=== PATIENT | female | born 1975 | race Caucasian/White ===

== ENCOUNTER 2018-08-11 07:15 | Day surgery (SDC) | payer OTHER ==
--- NOTE | 2018-07-08 12:27 | GHP ---
DATE OF ADMISSION: 08/11/2018 Date of planned procedure is 08/11/2018. PLANNED PROCEDURE: Hysteroscopy with morcellation of polyp and fibroid. INDICATIONS: Patient is a 42-year-old 0 who has a longstanding history of premenstrual dysph oric disorder and menorrhagia. The patient had a hysteroscopy and D and C in 2014 for menorrhagia an d endometrial polyps. Her periods were better for 9 months, but then have been progressively worseni ng over the last year and a half. They are very heavy and she has been diagnosed with anemia seconda ry to menorrhagia. Her most recent ultrasound showed a thickened lining on endometrium and a submuco javier fibroid. A sonohysterogram was performed which showed 3 polyps. The patient has been receiving care at [facility], however, her insurance is not taken at the hospital so she would like to proc eed with the surgery here. The patient is single at 42 and knows that she is not likely to have chil dren, however, is not interested in having an ablation or hysterectomy at this time due to not wantin g to close that window. All management options have been reviewed with the patient and the patient h as been properly consented. MEDICAL HISTORY: Menorrhagia, migraines, cystic acne when she had a Mirena IUD, severe premenstrual dysphoric disorder, depression, anxiety, anemia. MEDICATIONS: Trazodone 50 mg a day, Klonopin 0.5 mg, citalopram 40 mg, Wellbutrin 100 mg, estrogen p atch 0.5 mg, progesterone 100 mg, and [place] Thyroid 15 mg. SURGICAL HISTORY: Hysteroscopy with morcellation of endometrial polyp and myomectomy, and a bladder surgery. ALLERGIES: Penicillin. SOCIAL HISTORY: Patient is single. She denies tobacco or drug use. She does drink 1-2 alcoholic be verages a week. FAMILY MEDICAL HISTORY: Noncontributory. 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 Periods every month. They are very heavy. She bleeds 1-2 days. She has to change a super plus tampon and a heavy overnight pad every 1-2 hours and has clots and occ asional dysmenorrhea. The patient denies any history of abnormal Pap smears or sexually transmitted diseases. REVIEW OF SYSTEMS: Ten-point review of systems negative with the exception of the above-mentioned pe rtinent positives. PHYSICAL EXAMINATION: VITAL SIGNS: Stable. GENERAL APPEARANCE: Alert and oriented x3. MUS[place]UL[place] LETAL: Grossly intact. NEURO: Grossly intact. PSYCH: Appropriate affect. HEART: Regular rate. LUNGS: Clear to auscultation bilaterally. ABDOMEN: Soft, nondistended, nontender. EXTREMITIES: Reveal no calf tenderness or edema. PELVIC: Exam reveals a mobile midposition uterus with no adnexa l masses. Pelvic ultrasound shows a uterus measuring 9.3 x 4.7 x 5.7 cm with a 1.4 x 1.3 x 1.3 cm boyer bmucosal fibroid anteriorly and a 10 x 9 mm intramural fibroid. There is also a subserosal fibroid m easuring an 8 x 11 x 9 mm in size. Endometrium is 10 mm in thickness with a 5 mm hypoechoic structur e in the endometrium suspicious for a polyp. ASSESSMENT AND PLAN: A 42-year-old 0 with menorrhagia and suspected endometrial polyp. [facility] options were reviewed with the patient. The patient is electing to proceed with a hysteroscop y with morcellation of endometrial tissue and polyps and fibroids. Risks and benefits have been exte nsively reviewed with the patient, and patient has been properly consented. /[id number]/MODL
[2018-08-11] MEDS ORDERED: LR 1,000 ML IV ONE (07:30)
[2018-08-11] MEDS ORDERED: MIDAZOLAM 2 MG/2 ML VIAL IVP ONE (07:33)
--- NOTE | 2018-08-11 07:34 | PDANEPAE ---
ANE Past Medical History - Cardiovascular History Hx Hypertension: No Hx Arrhythmias: No Hx Chest Pain: No Hx Coronary Artery / Peripheral Vascular Disease: No Hx CHF / Valvular Disease: No Hx Palpitations: No - Pulmonary History Hx COPD: No Hx Asthma/Reactive Airway Disease: No Hx Recent Upper Respiratory Infection: No Hx Oxygen in Use at Home: No Hx Sleep Apnea: No Sleep Apnea Screening Result - Last Documented: Negative - Neurologic History Hx Cerebrovascular Accident: No Hx Seizures: No Hx Dementia: No - Endocrine History Hx Diabetes: No Endocrine History Comment: hypothyroidism - Renal History Hx Renal Disorders: No - Liver History Hx Hepatic Disorders: No - Neurological & Psychiatric Hx Hx Neurological and Psychiatric Disorders: Yes Neurological / Psychiatric History Comment: anxiety. depression - Cancer History Hx Cancer: No - Congenital Disorder History Hx Congenital Disorders: No - GI History Hx Gastrointestinal Disorders: No - Other Health History Other Health History: wears glasses/ contacts - Chronic Pain History Chronic Pain: No - Surgical History Prior Surgeries: hysteroscopy 2016. cystoscopy ANE Review of Systems Review of Systems: - Exercise capacity METS (RN): 4 METS ANE Patient History - Allergies Allergies/Adverse Reactions: Penicillins Allergy (Verified 07/19/18 10:49) Rash - Home Medications Home Medications: ARMOUR THYROID 07/19/18 [Last Taken 08/11/18] CLONAZEPAM 07/19/18 [Last Taken 08/10/18] Citalopram 07/19/18 [Last Taken 08/10/18] Estradiol 07/19/18 [Last Taken Unknown] Herbals/Supplements -Info Only 07/19/18 [Last Taken 08/04/18] Progesterone 07/19/18 [Last Taken Unknown] Wellbutrin Xl 07/19/18 [Last Taken 08/11/18 05:30] traZODone 07/19/18 [Last Taken 08/10/18] - Smoking Hx Smoking Status: Never smoked - Family Anes Hx Family Hx Anesthesia Complications: none ANE Labs/Vital Signs - Vital Signs Height: 167.64 cm Weight: 70.307 kg ANE Physical Exam - Airway Neck exam: FROM Mallampati Score: Class 2 Mouth exam: normal dental/mouth exam - Pulmonary Pulmonary: clear to auscultation - Cardiovascular Cardiovascular: regular rate and rhythym - ASA Status ASA Status: II ANE Anesthesia Plan Anesthesia Plan: GA w LMA, GA with mask, MAC
[2018-08-11] MEDS ORDERED: PROPOFOL/EMULSION 500 MG/50 ML BOTTLE IV ONE (07:57)
[2018-08-11] MEDS ORDERED: PROPOFOL 200 MG/20 ML VIAL ONE (07:57)
[2018-08-11] MEDS ORDERED: fentaNYL 100 MCG/2 ML INJ ONE ×2 (08:21→09:36)
[2018-08-11] MEDS ORDERED: METOCLOPRAMIDE 10 MG/2 ML VIAL ONE (08:47)
[2018-08-11] MEDS ORDERED: ONDANSETRON 4 MG/2 ML VIAL ONE (08:47)
[2018-08-11] MEDS ORDERED: KETOROLAC 30 MG/1 ML SDV ONE (08:47)
[2018-08-11] MEDS ORDERED: DEXAMETHASONE 4 MG/ML VIAL ONE (08:47)
--- NOTE | 2018-08-11 08:53 | GHP ---
[f rep st] PREOP HISTORY AND PHYSICAL DATE OF ADMISSION: 08/11/2018 PREOPERATIVE DIAGNOSES: 1. Dysfunctional menorrhagia. 2. Dysfunctional uterine bleeding. 3. Suspected endometrial polyp. PLANNED PROCEDURES: Hysteroscopy with morcellation of polyp and fibroid. Patient is a 42-year-old 0 with a longstanding history of premenstrual dysphoric disorder and menorrhagia. Patient had a hysteroscopy and dilation and curettage in 2014 for menorrhagia and endo metrial polyps. Her periods were better for 9 months but have been progressively worsening over the last year and a half. They have been very heavy, and she has been diagnosed with anemia secondary to menorrhagia. Her most recent ultrasound showed a thickened lining of endometrium and a submucosal f ibroid. A sonohysterogram was performed which showed 3 polyps. The patient has been receiving care at [facility]; however, her insurance is not taken at the hospital and would like to proceed wit surgery here. The patient is single at 42 and knows that she is not likely to have children; [facility], she is not interested in having an ablation or hysterectomy, at this time, due to not wanting to eliminate the possibility of having children. Management options have been reviewed with the patient , and patient has been properly consented. MEDICAL HISTORY: Menorrhagia, migraines, cystic acne when she had Mirena IUD, severe premenstrual dy sphoric disorder, depression, anxiety and anemia. MEDICATIONS: 1. Trazodone 50 mg a day. 2. Klonopin 0.5 mg. 3. Citalopram 40 mg. 4. Wellbutrin 100 mg. 5. Estrogen patch 0.5 mg. 6. Progesterone 100 mg. 7. [place] thyroid 15 mg. SURGICAL HISTORY: Hysteroscopy with morcellation of endometrial polyp and a myomectomy and a bladder surgery. ALLERGIES: Penicillin. SOCIAL HISTORY: Patient is single. She denies tobacco or drug use. She does drink 1-2 alcoholic be verages a week. FAMILY MEDICAL HISTORY: Noncontributory. 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 Periods every month. They are very heavy. She bleeds 1-2 days . She has to change a super plus tampon and a heavy overnight pad every 1-2 hours. She has clots an d occasional dysmenorrhea. Patient denies any history of any abnormal Pap smears or sexually transmi tted diseases. REVIEW OF SYSTEMS: A 10-point review of systems is negative with the exception of the above-mentione d pertinent positives. PHYSICAL EXAMINATION: VITAL SIGNS: Patient's vital signs are stable. GENERAL APPEARANCE: She is a lert and oriented x3. MUSCULOSKELETAL: Grossly intact. NEURO: Grossly intact. PSYCH: Appropriat e affect. HEART: Regular. LUNGS: Clear to auscultation bilaterally. ABDOMEN: Soft, nondistended , nontender. EXTREMITIES: Reveal no calf tenderness or edema. PELVIC: Reveals a mobile midpositio n uterus with no adnexal masses. IMAGING: Pelvic ultrasound shows the uterus measuring 9.4 x 4.7 x 5.7 cm with a 1.4 x 1.3 x 1.3 cm s ubmucosal fibroid anteriorly and a 10 x 9 mm intramural fibroid. There is also a subserosal fibroid measuring 8 x 11 x 9 mm in size. The endometrium is 11 mm in thickness with a 5 mm hypoechoic struct ure in the endometrium suspicious for a polyp. ASSESSMENT AND PLAN: A 42-year-old 0 with: 1. Menorrhagia. 2. Suspected endometrial polyp. Management options were reviewed with the patient. Patient is electing to proceed with a hysteroscop y with morcellation of endometrial tissue and polyps and fibroids. Risks and benefits have been exte nsively reviewed with the patient. Patient has been properly consented. /[id number]/MODL
[2018-08-11] MEDS ORDERED: PROMETHAZINE HCL 25 MG/ML INJ IVP PRN (09:01)
[2018-08-11] MEDS ORDERED: fentaNYL 100 MCG/2 ML INJ IVP PRN (09:01)
[2018-08-11] MEDS ORDERED: HYDROCODONE/APAP 5/325 TAB PO PRN (09:01)
[2018-08-11] MEDS ORDERED: ALBUTEROL 3 ML DEYVIAL IH PRN (09:01)
[2018-08-11] MEDS ORDERED: DIAZEPAM 5 MG/ML 1 ML SYR IVP PRN (09:01)
[2018-08-11] MEDS ORDERED: NALOXONE HCL 0.4 MG/ML INJ IVP PRN (09:01)
[2018-08-11] MEDS ORDERED: ONDANSETRON 4 MG/2 ML VIAL IVP PRN (09:01)
[2018-08-11] MEDS ORDERED: HYDROmorphONE/DILAUDID 2 MG/ML INJ IVP PRN (09:01)
[2018-08-11] MEDS ORDERED: oxyCODONE IR 5 MG TAB PO PRN (09:01)
[2018-08-11] MEDS ORDERED: ACETAMINOPHEN 500 MG TAB PO PRN (09:01)
[2018-08-11] MEDS ORDERED: MEPERIDINE 25 MG/0.5 ML AMP IVP PRN (09:01)
--- NOTE | 2018-08-11 09:27 | POSTANESTH ---
Post Anesthetic Evaluation Cardiovascular Status: Normal, Stable Respiratory Status: Normal, Stable Level of Consciousness/Mental Status: Can Participate in Eval Pain Control: Adequate, Prn Tx Ordered Nausea/Vomiting Control: Adequate, Prn Tx Ordered Complications Possibly Related to Anesthesia: None Noted
[2018-08-11] MEDS ORDERED: ACETAMINOPHEN 325 MG TAB ONE (09:36)
[2018-08-11] MEDS ORDERED: ACETAMINOPHEN 500 MG TAB ONE (09:38)
--- NOTE | 2018-08-11 09:54 | GOP ---
[f rep st] OPERATIVE REPORT DATE OF OPERATION: 08/11/2018 SURGEON: Debbie Ruano DO ANESTHESIOLOGIST: Dr. Gallardo. PREOPERATIVE DIAGNOSIS: Menorrhagia and dysfunctional uterine bleeding. POSTOPERATIVE DIAGNOSIS: Menorrhagia and dysfunctional uterine bleeding. PROCEDURE PERFORMED: Hysteroscopy with morcellation of endometrial tissue. FINDINGS: 1. Exam under anesthesia: Mobile midposition uterus with no adnexal masses. 2. Hysteroscopic findings: Bilateral tubal ostia visualized. No obvious polyps or fibroids were no joseph. Slightly thickened endometrium posterior. INDICATIONS: Patient is a 42-year-old 0, who has a history of heavy menstrual periods. She had a hysteroscopy with morcellation of endometrial tissue in 2014 which improved her periods signifi cantly for the first 9 months, and then they have been getting progressively worse over the last year and a half. She had a sonohysterogram at [facility], which showed endometrial polyps. She wilbur red to proceed with a hysteroscopy with morcellation of endometrial tissue. She declines endometrial ablation due to not wanting to eliminate the possibility of having children. Risks and benefits wer e reviewed with the patient and patient was properly consented. DESCRIPTION OF PROCEDURE: Patient was taken to the operating room with intravenous fluids in place. She was then placed on the operating room table in the dorsal supine position, where general anesthe joy was obtained. She was then repositioned into the dorsal lithotomy position with the Yellofin sti rrups and prepped and draped in normal sterile fashion. Exam under anesthesia revealed a mobile, mid position uterus with no adnexal masses. A speculum was then placed in the patient's vagina. An [place] s clamp was used to grasp the anterior lip of the cervix and the cervix was then carefully dilated to allow for the introduction of an operative hysteroscope. The hysteroscope was then introduced with fluid medium running. Bilateral tubal ostia were visualized. No obvious polyps or fibroids were vis ualized. Slightly thickened endometrium tissue was noted and a circumferential morcellation of the e ndometrial lining was performed. No obvious fibroids or polyps were noted. The endocervical canal w as evaluated while withdrawing the hysteroscope, and no polyps or fibroids were noted either. Bleedi ng was noted to be minimal. Instruments were then removed from the patient's vagina. The patient wa s returned to the dorsal supine position where she was easily awoken from anesthesia. Sponge count w as correct. The patient was transported to recovery room in stable condition. /[id number]/MODL
[2018-08-11 11:06] VITALS: BP 106/65
== END 2018-08-11 11:35 | disposition home or self-care (01) ==
LOC: FSGY 07:15
PROVIDERS: ATTEND Obstetrics & Gynecology
PROC: 0UDB8ZX Extraction of Endometrium, Via Natural or Artificial Opening Endoscopic, Diagnostic (ICD-10-PCS; principal; 2018-08-11 08:30)
DX: N92.0 Excessive and frequent menstruation with regular cycle (principal); N93.8 Other specified abnormal uterine and vaginal bleeding
CPT/HCPCS: 58558; C1782; J1100; J1885; J2250; J2405; J2704; J2765; J3010